=== PATIENT | male | born 1960 | race Two or more races ===

== ENCOUNTER 2016-10-20 18:20 | Inpatient (IN) | payer OTHER ==
[~2016-10-20] VITALS: Ht 165.1 cm; Wt 98.3 kg
[2016-10-20] MEDS ORDERED: SODIUM CHLORIDE 0.9% 500 ML IVB ONE (19:11)
[2016-10-20 19:35] LABS: Albumin 3.9 g/dL (3.4-5.0); BUN/Creatinine Ratio 9.6; Calcium 8.8 mg/dL (8.5-10.1); Potassium 3.9 mmol/L (3.5-5.1)
[2016-10-20 19:38] LABS: Bilirubin, Total 0.5 mg/dL (0.2-1.0); Total Protein 7.5 g/dL (6.4-8.2)
[2016-10-20 19:45] LABS: Urine RBC None Seen /hpf (0 - 3)
[2016-10-20 19:55] LABS: Basophils # (auto) 0 uL; Basophils % (auto) 0.2 % (0.0-2.0); Eosinophils # (auto) 0 uL; Eosinophils % (auto) 0.3 % (0.0-7.0); Hematocrit 46.3 % (41.0-53.0); Hemoglobin 14.9 g/dL (13.5-17.5); Lymphocytes # (auto) 2.5 uL; Lymphocytes % (auto) 38.4 % (10.0-50.0); Mean Corpuscular Hemoglobin 29.1 pg (28.0-32.0); Mean Corpuscular Hgb Conc. 32.2 g/dL (32.0-36.0); Mean Corpuscular Volume 90.4 fL (80.0-100.0); Mean Platelet Volume 10.3 fL (7.4-10.4); Monocytes # (auto) 0.5 uL; Neutrophils # (auto) 3.5 uL; Neutrophils % (auto) 53.1 % (37.0-80.0); Platelet Count (auto) 222 10^3/uL (140-450); Red Cell Distribution Width 13.8 % (11.6-16.0); White Blood Cell 6.6 10^3/uL (4.4-10.8)
[2016-10-20 20:02] LABS: Urine Bilirubin Negative (Negative); Urine Blood Negative /uL (Negative); Urine Color Yellow (Yellow); Urine Ketone Negative (Negative); Urine Nitrite Negative (Negative); Urine Urobilinogen Normal (Negative)
[2016-10-20 20:04] LABS: Urine Glucose 3+ mg/dL (Normal)
[2016-10-20] MEDS: SODIUM CHLORIDE 0.9% 1,000 ML IV SCH ×2 (20:30→21:30)
[2016-10-20 20:52] LABS: Magnesium 2.5 mg/dL (1.6-2.6)
[2016-10-20 20:56] LABS: Cholesterol 223 mg/dL (<200); Triglycerides 166 mg/dL (<150)
[2016-10-20 20:58] LABS: HDL Cholesterol 47 mg/dL (40-59); LDL Cholesterol 173 mg/dL (<100)
[2016-10-20] MEDS ORDERED: SODIUM CHLORIDE 0.9% 1,000 ML IV SCH (21:22)
[2016-10-20] MEDS ORDERED: LACTULOSE 20Gm/30ML SOLN PO PRN (21:30)
[2016-10-20] MEDS ORDERED: NITROGLYCERIN 0.4 MG SL TAB SL PRN (21:30)
[2016-10-20] MEDS ORDERED: MORPHINE SULF INJ 2 MG/ML SYRINGE 1ML IV PRN (21:30)
[2016-10-20 22:30] VITALS: BP 130/74
[2016-10-20 23:15] VITALS: BP 130/74
[2016-10-21] VITALS (7 sets, daily range): BP systolic 100–150; BP diastolic 57–81
[2016-10-21 05:49] LABS: Basophils # (auto) 0 uL; Basophils % (auto) 0.2 % (0.0-2.0); Eosinophils # (auto) 0 uL; Eosinophils % (auto) 0.5 % (0.0-7.0); Hematocrit 45.1 % (41.0-53.0); Hemoglobin 14.4 g/dL (13.5-17.5); Lymphocytes # (auto) 2.5 uL; Lymphocytes % (auto) 36.5 % (10.0-50.0); Mean Corpuscular Volume 90.6 fL (80.0-100.0); Mean Platelet Volume 10.3 fL (7.4-10.4); Monocytes # (auto) 0.6 uL; Monocytes % (auto) 8.9 % (0.0-12.0); Neutrophils # (auto) 3.7 uL; Neutrophils % (auto) 53.9 % (37.0-80.0); Platelet Count (auto) 217 10^3/uL (140-450); Red Cell Distribution Width 13.7 % (11.6-16.0); White Blood Cell 6.8 10^3/uL (4.4-10.8)
[2016-10-21 06:05] LABS: Potassium 4.1 mmol/L (3.5-5.1)
[2016-10-21 06:11] LABS: Albumin 3.3 g/dL (3.4-5.0); BUN/Creatinine Ratio 9.4; Calcium 8.7 mg/dL (8.5-10.1)
[2016-10-21 06:19] LABS: Bilirubin, Total 0.7 mg/dL (0.2-1.0); Total Protein 6.7 g/dL (6.4-8.2)
[2016-10-21] MEDS: ATORVASTATIN 20 MG TAB PO SCH (09:54)
[2016-10-21] MEDS: ASPirin-EC 81 mg tab PO SCH (09:54)
[2016-10-21] MEDS ORDERED: ENOXAPARIN SOD 30 MG/0.3 ML SYRINGE SC SCH (10:00)
[2016-10-21] MEDS ORDERED: DEXTROSE (50%) 50ML SYRG IV PRN (15:00)
[2016-10-21] MEDS: InsuLIN REG 1unit/0.01ml Soln (100units/ml) SC SCH ×2 (17:00→21:43)
[2016-10-21] MEDS: ACCU-CHEK COMFORT CURVE STRIP VI SCH ×2 (17:00→21:43)
[2016-10-21] MEDS: ACETAMINOPHEN 325 MG TAB PO PRN (17:51)
[2016-10-21] MEDS ORDERED: DILTIAZEM HCL 60 MG TAB GT ONE (20:00)
[2016-10-21] MEDS: APIXABAN 5 MG TAB PO SCH (21:45)
[2016-10-22] MEDS ORDERED: DILTIAZEM HCL 60 MG TAB GT SCH (02:00)
[2016-10-22 06:16] VITALS: BP 111/69
[2016-10-22] MEDS: InsuLIN REG 1unit/0.01ml Soln (100units/ml) SC SCH ×4 (06:23→22:00)
[2016-10-22] MEDS: ACCU-CHEK COMFORT CURVE STRIP VI SCH ×4 (06:24→22:23)
[2016-10-22 07:57] VITALS: BP 105/68
[2016-10-22] MEDS: DILTIAZEM HCL 60 MG TAB GT SCH ×2 (09:10→11:58)
[2016-10-22] MEDS: ATORVASTATIN 20 MG TAB PO SCH (09:10)
[2016-10-22] MEDS: ASPirin-EC 81 mg tab PO SCH (09:11)
[2016-10-22] MEDS: APIXABAN 5 MG TAB PO SCH ×2 (09:11→21:29)
[2016-10-22] MEDS ORDERED: DILTIAZEM HCL 60 MG TAB PO SCH (12:00)
[2016-10-22 14:24] VITALS: BP 116/70
[2016-10-22] MEDS ORDERED: METOPROLOL SUCCINATE XL 50 MG TAB PO ONE (15:15)
[2016-10-22] MEDS ORDERED: AMIODARONE HCL 200 MG TAB PO ONE (15:15)
[2016-10-22 17:01] VITALS: BP 116/71
[2016-10-22] MEDS: ACETAMINOPHEN 325 MG TAB PO PRN (18:03)
[2016-10-22] MEDS: AMIODARONE HCL 200 MG TAB PO SCH (21:29)
[2016-10-22 22:17] VITALS: BP 113/73
[2016-10-23 04:51] VITALS: BP 95/60
[2016-10-23] MEDS: InsuLIN REG 1unit/0.01ml Soln (100units/ml) SC SCH ×4 (06:22→21:49)
[2016-10-23] MEDS: AMIODARONE HCL 200 MG TAB PO SCH ×3 (06:22→21:50)
[2016-10-23] MEDS: ACCU-CHEK COMFORT CURVE STRIP VI SCH ×4 (06:23→21:50)
[2016-10-23 08:00] VITALS: BP 137/74
[2016-10-23 09:00] VITALS: BP 137/74
[2016-10-23] MEDS: APIXABAN 5 MG TAB PO SCH (10:21)
[2016-10-23] MEDS: ASPirin-EC 81 mg tab PO SCH (10:21)
[2016-10-23] MEDS: ATORVASTATIN 20 MG TAB PO SCH (10:21)
[2016-10-23] MEDS: METOPROLOL SUCCINATE XL 50 MG TAB PO SCH (10:22)
[2016-10-23] MEDS: ACETAMINOPHEN 325 MG TAB PO PRN (10:22)
[2016-10-23 13:00] VITALS: BP 145/88
[2016-10-23 17:06] VITALS: BP 120/77
[2016-10-23 22:00] VITALS: BP 111/65
[2016-10-24 05:20] VITALS: BP 102/66
[2016-10-24] MEDS: AMIODARONE HCL 200 MG TAB PO SCH ×2 (06:34→14:02)
[2016-10-24] MEDS: ACCU-CHEK COMFORT CURVE STRIP VI SCH ×2 (06:34→11:30)
[2016-10-24] MEDS: InsuLIN REG 1unit/0.01ml Soln (100units/ml) SC SCH ×2 (06:35→11:30)
[2016-10-24 08:00] VITALS: BP 114/76
[2016-10-24] MEDS ORDERED: ASPirin 81 mg TAB PO SCH (10:00)
[2016-10-24] MEDS ORDERED: ASPirin 325 MG TAB PO SCH (10:00)
[2016-10-24] MEDS: METOPROLOL SUCCINATE XL 50 MG TAB PO SCH (10:55)
[2016-10-24] MEDS: ATORVASTATIN 20 MG TAB PO SCH (10:56)
[2016-10-24 13:00] VITALS: BP 126/76
[2016-10-24 13:35] VITALS: BP 106/70
== END 2016-10-24 15:03 | disposition home or self-care (01) | DRG 65 ==
LOC: ER 18:33 → TELE 18:34 → TELE-WESTW 22:33
PROVIDERS: ADMIT Family Medicine; ATTEND Internal Medicine
DX: I63.512 Cerebral infarction due to unspecified occlusion or stenosis of left middle cerebral artery (principal); D68.69 Other thrombophilia; E66.9 Obesity, unspecified; R47.01 Aphasia; G47.30 Sleep apnea, unspecified; I48.91 Unspecified atrial fibrillation; E11.9 Type 2 diabetes mellitus without complications; E78.5 Hyperlipidemia, unspecified; Z68.36 Body mass index [BMI] 36.0-36.9, adult
CPT/HCPCS: 36415; 70450; 70545; 70551; 71020; 80053; 80061; 80320; 81001; 82962; 83036; 83090; 83735; 84484; 85025; 92523; 93005; 93306; 93886; 94660; 95819; 96360; 96361; 97110; 97116; 97530; 99291; G0434; J1815